=== PATIENT | female | born 1940 | race Caucasian/White ===

== ENCOUNTER 2023-09-20 14:56 | Emergency (ER) | payer MEDICARE ==
[2023-09-20] MEDS ORDERED: EPINEPHrine 1 MG/1 ML Amp IVPUSH ONE ×3 (14:59→15:06)
[2023-09-20] MEDS ORDERED: EPINEPHrine 1:10,000 1 MG/10 ML Syringe IVPUSH ONE ×3 (14:59→15:06)
[2023-09-20] MEDS ORDERED: Sodium Bicarbonate 8.4% 50 MEQ/50 ML Syringe IVPUSH ONE (15:00)
[2023-09-20] MEDS ORDERED: Sodium Chloride 0.9% 1,000 ML IV ONE (15:00)
== END 2023-09-20 16:07 | disposition expired ==
LOC: MW.ED 15:14
DX: I46.9 Cardiac arrest, cause unspecified (principal)
CPT/HCPCS: 31500; 36680; 92950; 99285; J0171; J7030; J3490